=== PATIENT | female | born 1960 | race Caucasian/White ===

== ENCOUNTER 2017-03-30 09:13 | Emergency (ER) | payer BC ==
--- NOTE | 2017-03-30 10:34 | UC ---
I, Maulik,Judit, scribed for Pamela Guerra MD on 03/30/17 at 1027 . Back Pain HPI - HPI Summary HPI Summary: This 56 y/o female presents to [facility] for 5/10 left lower back pain since 2 days ago. Pt was just coming out of shower in evening when she first noticed her back pain on day of onset. Positive nausea and decreased appetite. Negative dysuria, or hemaruia. Movement such as bending over makes the pain worse. Walking does not worsen the pain. Heating pad and ASA make it better. PMHx does not include known kidney stone, Primary care involves Dr. Luu. 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 - History of Current Complaint Chief Complaint: UCGU Stated Complaint: LOWER BACK PAIN DIZZY Time Seen by Provider: 03/30/17 09:24 Hx Obtained From: Patient, Medical Records Timing: Constant Pain Intensity: 5 Pain Scale Used: 0-10 Numeric Back Pain: Is Discrete @ - left lower back Aggravating: Bending Alleviating: Nothing Associated Signs And Symptoms: Positive: Negative - Allergies/Home Medications Allergies/Adverse Reactions: Allergies Allergy/AdvReac Type Severity Reaction Status Date / Time Prednisone Allergy itch Verified 03/30/17 09:14 Home Medications: Home Medications NK [No Home Medications Reported] 03/30/17 [History Confirmed 03/30/17] PMH/Surg Hx/FS Hx/Imm Hx - Additional Past Medical History Additional PMH: Yes - Low white blood count being tracked by Dr. Luu Previously Healthy: Yes - low white count being evaluated - Surgical History Surgical History: None Surgery Procedure, Year, and Place: hyster - Family History Known Family History: Positive: Cardiac Disease - father. Brother with HLD Negative: Other - breast CA - Social History Alcohol Use: Daily Substance Use Type: None Smoking Status (MU): Former Smoker Review of Systems Constitutional: Negative Skin: Negative Eyes: Negative ENT: Negative Respiratory: Negative Cardiovascular: Negative Gastrointestinal: Negative Genitourinary: Negative Motor: Negative Neurovascular: Negative Musculoskeletal: Other: - left lower back pain Neurological: Negative Psychological: Negative All Other Systems Reviewed And Are Negative: Yes Physical Exam Triage Information Reviewed: Yes Vital Signs: Initial Vital Signs Temp 98 F 03/30/17 09:15 Pulse 85 03/30/17 09:15 Resp 18 03/30/17 09:15 Pulse Ox 100 07/09/17 09:15 Vital Signs Reviewed: Yes Eye Exam: Normal Neck: Positive: Supple, Nontender, No Lymphadenopathy Respiratory: Positive: Lungs clear, Normal breath sounds Cardiovascular: Positive: RRR, No Murmur Abdomen Description: Positive: No Organomegaly, Soft, Other: - No guarding or rebound. Mild tenderness in the left abdomen was not reproducbile.. Negative: CVA Tenderness (R), CVA Tenderness (L), Splenomegaly Bowel Sounds: Positive: Present Musculoskeletal Exam: Other - Good ROM in lumbar spine, with mild discomfort with forward bending. Normal hip rom without pain. SLR to 90 degrees bilaterally. Neurological: Positive: Alert, Muscle Tone Normal - DTR's normal at knees, symmetrical Skin Exam: Normal - no visible rashes. Back Pain Course/Dx - Course Course Of Treatment: observation; discussed that this could be a prodrome to herpes zoster. To monitor for developement of rash, continue nsaid's for control of pain. - Differential Dx/Diagnosis Differential Diagnosis/HQI/PQRI: Herniated Disc, Strain, Sprain, Other - renal stones, ? zoster Provider Diagnoses: left flank pain NYD, likely musculoskeletal. Could be a prodrome of zoster. Discharge - Discharge Plan Condition: Stable Disposition: HOME Patient Education Materials: Flank Pain (ED) Referrals: Chavez Luu MD [Primary Care Provider] - Additional Instructions: It is possible that this is a muscle strain, but it is also possible that is the prodrome to shingles. I suggest that you use pain medications such as iburprofen, and monitor for the development of rash. Should you develop a rash consistent with shingles, ensure that you follow up with Dr. Luu, because an antiviral would be indicated. The documentation as recorded by the Maulik wilson Soohyun accurately reflects the service I personally performed and the decisions made by me, Pamela Guerra MD.
== END 2017-03-30 10:40 | disposition home or self-care (01) ==
LOC: UCEAST 09:13
DX: R10.9 Unspecified abdominal pain (principal); Z87.891 Personal history of nicotine dependence
CPT/HCPCS: 81003; 99211; G0463

== ENCOUNTER 2019-06-23 10:22 | Emergency (ER) | payer BC ==
--- NOTE | 2019-06-23 10:46 | ED ---
Complex/Multi-Sys Presentation - HPI Summary HPI Summary: This patient is a 59 year old F presenting to [facility] with a chief complaint of left sided chest, arm, and neck discomfort since yesterday. Pt also complains of shortness of breath. The patient rates the pain 7/10 in severity. Symptoms aggravated by movement. Symptoms alleviated by nothing. Pt has PMHx of DVT. She is not taking any blood thinner medication. She does not smoke or use recreational drugs, but occasionally drinks. Pt has not travelled for long periods of time recently. - History Of Current Complaint Chief Complaint: EDChestWallPain Time Seen by Provider: 06/23/19 10:33 Hx Obtained From: Patient Onset/Duration: Sudden Onset, Lasting Days - 1, Still Present Timing: Constant Severity Currently: Mild Severity Initially: Mild Aggravating Factor(s): movement Alleviating Factor(s): nothing Associated Signs And Symptoms: Positive: SOB, Chest Pain, Other - positive - left sided chest, arm, and neck discomfort, SOB - Allergies/Home Medications Allergies/Adverse Reactions: Allergies Allergy/AdvReac Type Severity Reaction Status Date / Time cholecalciferol (vitamin D3) Allergy Headache Verified 06/23/19 11:36 [From Vitamin D3] prednisone Allergy Itching Verified 06/23/19 11:36 Home Medications: Home Medications Ascorbic Acid TAB* [Vitamin C TAB*] 500 mg PO DAILY 06/23/19 [History Confirmed 06/23/19] Vitamin E CAP* 200 unit PO DAILY 06/23/19 [History Confirmed 06/23/19] PMH/Surg Hx/FS Hx/Imm Hx Previously Healthy: No Cardiovascular History: Reports: Hx Deep Vein Thrombosis Sensory History: Denies: Hx Hearing Problem, Hx Auditory Problems EENT History: Denies: Hx Deafness - Cancer History Hx Chemotherapy: No Hx Radiation Therapy: No - Surgical History Surgical History: Yes Surgery Procedure, Year, and Place: hyster Infectious Disease History: No Infectious Disease History: Denies: Hx Clostridium Difficile, Hx Hepatitis, Hx Human Immunodeficiency Virus (HIV), Hx of Known/Suspected MRSA, Hx Shingles, Hx Tuberculosis, Hx Known/ Suspected VRE, Hx Known/Suspected VRSA, History Other Infectious Disease, Traveled Outside the [place] in Last 30 Days - Family History Known Family History: Positive: Cardiac Disease - father. Brother with HLD Negative: Other - breast CA - Social History Alcohol Use: Daily Substance Use Type: Reports: None Smoking Status (MU): Former Smoker Review of Systems Positive: Chest Pain Positive: Shortness Of Breath Musculoskeletal: Other - positive - left sided arm, and neck discomfort All Other Systems Reviewed And Are Negative: Yes Physical Exam - Summary Physical Exam Summary: VITAL SIGNS: Reviewed. GENERAL: Patient is a well-developed and nourished FEMALE who is lying comfortable in the stretcher. Patient is not in any acute respiratory distress. HEAD AND FACE: No signs of trauma. No ecchymosis, hematomas or skull depressions. No sinus tenderness. EYES: PERRLA, EOMI x 2, No injected conjunctiva, no nystagmus. EARS: Hearing grossly intact. Ear canals and tympanic membranes are within normal limits. MOUTH: Oropharynx within normal limits. NECK: Supple, trachea is midline, no adenopathy, no JVD, no carotid bruit, no c- spine tenderness, neck with full ROM. CHEST: Symmetric, no tenderness at palpation. LUNGS: Clear to auscultation bilaterally. No wheezing or crackles. CVS: Regular rate and rhythm, S1 and S2 present, no murmurs or gallops appreciated. ABDOMEN: Soft, non-tender. No signs of distention. No rebound, no guarding, and no masses palpated. Bowel sounds are normal. MUSCULOSKELETAL: Left upper back tenderness EXTREMITIES: FROM in all major joints, no edema, no cyanosis or clubbing. NEURO: Alert and oriented x 3. No acute neurological deficits. Speech is normal and follows commands. SKIN: Dry and warm. Triage Information Reviewed: Yes Vital Signs On Initial Exam: Initial Vitals Temp Pulse Resp BP Pulse Ox 97.7 F 91 22 147/74 100 06/23/19 10:24 06/23/19 10:24 06/23/19 10:24 06/23/19 10:24 06/23/19 10:24 Vital Signs Reviewed: Yes Procedures - Sedation Patient Received Moderate/Deep Sedation with Procedure: No Diagnostics - Vital Signs Vital Signs Temp Pulse Resp BP Pulse Ox 06/23/19 10:24 97.7 F 91 22 147/74 100 - Laboratory Result Diagrams: 06/23/19 11:22 06/23/19 11:22 Lab Statement: Any lab studies that have been ordered have been reviewed, and results considered in the medical decision making process. - Radiology CXR Radiology Interpretation Completed By: Radiologist Summary of Radiographic Findings: IMPRESSION: #. Stigmata of obstructive lung disease. No acute pulmonary or cardiac process evident. THIS REPORT WAS REVIEWED BY DR. JOY. - EKG 1033 Cardiac Rate: NL - 90 BPM EKG Rhythm: Sinus Rhythm Summary of EKG Findings: EKG at 1033 shows sinus rhythm, 90 BPM, no ST elevations, normal axis. EKG was reviewed and interpreted by ED physician. Re-Evaluation - Re-Evaluation First Eval Re-Evaluation Time: 14:15 Comment: I discussed all the findings and test results with the patient. Patient was instructed to return to the emergency room immediately if any of the symptoms return or worsen. Patient understands and agrees. Plan of care was discussed with the patient and patient understands and agrees. All questions were answered at patient satisfaction. There were no further complaints or concerns. PE before discharge: CVS: S1 and S2 present. No murmurs appreciated. Abdominal exam before discharge: Soft, non-tender. No signs of distention. No rebound no guarding, and no masses palpated. Bowel sounds are normal. Patient is alert and oriented x 3. Patient is hemodynamically stable. Complex Multi-Symp Course/Dx Assessment/Plan: This patient is a 59-year-old female who presents to the emergency department with chief complaints of shortness of breath and chest pain. Patient has a past medical history significant for DVT. EKG shows a normal sinus rhythm at 96/m slight ST depression noted; 2. No ST elevations. Chest x-ray impression: Stigmata of obstructive lung disease. No acute pulmonary or cardiac process evident. Blood work without any significant abnormality except for glucose of 106, BNP is 102. D-dimer is negative so therefore have no suspicion for pulmonary emboli. Troponin 0.00. In the ED course the patient was given Toradol for the pain. Chest x-ray impression: Stigmata of obstructive lung disease. No acute pulmonary or cardiac process evident. In the ED course the patient continues to be asymptomatic.Second troponin is negative. Therefore, low suspicion for ACS and D dimer is negative. Patient will be discharged home with F/U of PCP. Patient reports that all symptoms have resolved. Because the patient has no significant comorbidities and no family history of cardiovascular disease at his age the patient will be discharged home with follow up of PMD. I discussed all the findings and test results with the patient. Patient was instructed to return to the emergency room immediately if any of the symptoms return or worsen. Patient understands and agrees. Plan of care was discussed with the patient and patient understands and agrees. All questions were answered at patient satisfaction. There were no further complaints or concerns. PE before discharge : CVS: S1 and S2 present. No murmurs appreciated. Abdominal exam before discharge: Soft, non-tender. No signs of distention. No rebound no guarding, and no masses palpated. Bowel sounds are normal. Patient is alert and oriented x 3. Patient is hemodynamically stable. - Diagnoses Provider Diagnoses: Chest pain, Dyspnea Discharge ED - Sign-Out/Discharge Documenting (check all that apply): Patient Departure - discharge - Discharge Plan Condition: Stable Disposition: HOME Patient Education Materials: Chest Pain (ED), Dyspnea (ED) Referrals: Chavez Luu MD [Primary Care Provider] - 3 Days Additional Instructions: PLEASE RETURN TO ED FOR ANY NEW OR WORSENING SYMPTOMS. PLEASE FOLLOW UP WITH YOUR PRIMARY CARE PHYSICIAN WITHIN THREE DAYS. - Billing Disposition and Condition Condition: STABLE Disposition: Home - Attestation Statements Document Initiated by Katie: Yes Documenting Scribe: Prosper Richardson Provider For Whom Katie is Documenting (Include Credential): Dr. Fahad Jyo MD Scribe Attestation: Prosper Brewer, guilleibed for Dr. Fahad Joy MD on 06/25/19 at 0914. Scribe Documentation Reviewed: Yes Provider Attestation: The documentation as recorded by the katie, Prosper Richardson accurately reflects the service I personally performed and the decisions made by , Dr. Fahad Joy MD Status of Scribe Document: Viewed
[2019-06-23 11:34] LABS: ABS Lymphocytes 0.6 10^3/ul (1.0-4.8); ABS Monocytes 0.6 10^3/ul (0-0.8); ABS Neutrophils 3.1 10^3/ul (1.5-7.7); Eosinophil % 0.8 %; Hematocrit 43 % (35-47); Hemoglobin 14.8 g/dL (12.0-16.0); Lymphocyte % 14.7 %; Mean Corpuscular HGB Conc 35 g/dL (31-36); Mean Corpuscular Hemoglobin 31 pg (27-31); Mean Corpuscular Volume 90 fL (80-97); Mean Platelet Volume 7.9 fL (7.4-10.4); Platelet Count 230 10^3/uL (150-450); Red Blood Count 4.72 10^6 /uL (3.70-4.87); Red Cell Distribution Width 12 % (10-15); White Blood Count 4.4 10^3/uL (3.5-10.8)
[2019-06-23 11:41] LABS: INR 1.02 (0.82-1.09)
[2019-06-23 11:51] LABS: Albumin 4.6 g/dL (3.2-5.2); Albumin/Globulin Ratio 1.7 (1-3); BUN/Creatinine Ratio 23.7 (8-20); Calcium 10.1 mg/dL (8.6-10.3); EGFR African American 125.8 (>60); Globulin 2.7 g/dL (2-4); Total Bilirubin 0.6 mg/dL (0.2-1.0); Total Protein 7.3 g/dL (6.4-8.9)
[2019-06-23 11:55] LABS: CKMB ng/mL 4.3 ng/mL (0.6-6.3)
[2019-06-23 12:33] LABS: TSH (Thyroid Stimulating Horm) 3.02 mcIU/mL (0.34-5.60)
[2019-06-23 13:59] LABS: Urine Appearance Clear; Urine Bacteria Absent (Absent); Urine Bilirubin Negative (Negative); Urine Blood Negative (Negative); Urine Color Straw; Urine Glucose Negative (Negative); Urine Ketones Negative (Negative); Urine Nitrite Negative (Negative); Urine Protein Negative (Negative); Urine Red Blood Cell Absent (Absent); Urine Specific Gravity 1.003 (1.010-1.030); Urine Squamous Epithelial Cell Present (Absent); Urine Urobilinogen Negative (Negative); Urine White Blood Cell Trace(0-5/hpf) (Absent)
[2019-06-23] MEDS: Ketorolac INJ* 30 MG/ML 1 ML VIAL IV PUSH ONE (14:13)
[2019-06-23] MEDS: Ketorolac *IM* INJ* 60 MG/2 ML VIAL IM ONE (14:13)
[2019-06-23 14:36] VITALS: BP 131/78
== END 2019-06-23 14:30 | disposition home or self-care (01) ==
LOC: ED 10:22
DX: R07.9 Chest pain, unspecified (principal); R06.00 Dyspnea, unspecified; Z86.718 Personal history of other venous thrombosis and embolism; Z87.891 Personal history of nicotine dependence; Z79.899 Other long term (current) drug therapy; Z88.8 Allergy status to other drugs, medicaments and biological substances
CPT/HCPCS: 36415; 71046; 80053; 81003; 81015; 82550; 82553; 83605; 83735; 83880; 84443; 84484; 85025; 85379; 85610; 87086; 93005; 96372; 99283; J1885